=== PATIENT | male | born 1975 | race Caucasian/White ===

== ENCOUNTER 2022-05-12 14:14 | Emergency (ER) | payer OTHER ==
[~2022-05-12] VITALS: Ht 175.3 cm; Wt 83.0 kg
[2022-05-12 14:33] VITALS: BP 125/71
[2022-05-12] MEDS ORDERED: ACETAMINOPHEN 325 MG TAB PO ONE (15:55)
[2022-05-12] MEDS ORDERED: ACETAMINOPHEN 325 MG TAB ONE (17:03)
[2022-05-12 19:51] VITALS: BP 122/71
--- NOTE | 2022-05-12 19:51 | NUR ---
Patient discharged with v/s stable. Written and verbal after care instructions given and explained. Patient verbalized understanding. Ambulatory with steady gait. All questions addressed prior to discharge. Advised to follow up with PMD.
== END 2022-05-12 19:51 | disposition home or self-care (01) ==
LOC: MED 14:14
DX: M25.561 Pain in right knee (principal); M79.661 Pain in right lower leg; R03.0 Elevated blood-pressure reading, without diagnosis of hypertension
CPT/HCPCS: 36415; 73562; 85379; 99284; Q0092